=== PATIENT | female | born 1945 | race Caucasian/White ===

== ENCOUNTER 2016-05-27 13:26 | Emergency (ER) | payer OTHER, MEDICARE ==
[~2016-05-27] VITALS: Ht 157.5 cm; Wt 77.1 kg
--- NOTE | 2016-05-27 16:01 | ED MVC/FALL/TRAUMA COMPLAINT ---
History of Present Illness General Chief Complaint: Fall Stated Complaint: S/P FALL 5 STAIRS HIT HEAD,RIGHT ARM LEFT SHOULDER Source: patient Exam Limitations: no limitations Allergies Coded Allergies: MDX - SULFA (sulfonamide) (SULFA (SULFONAMIDE)) (UNKNOWN 05/18/11) Reconcile Medications Hydrocodone/Acetaminophen (Vicodin 5-300 MG Tablet) 5 MG-300 MG TABLET 1 TAB PO Q6HR PRN PAIN Hydrocodone/Acetaminophen ([place] 5-325 Tablet) 5 MG-325 MG TABLET 1-2 TAB PO Q4-6 PRN PRN pain Triage Note: FELL DOWN 5 STAIRS THIS AM. C/O PAIN ON LEFT SIDE OF HEAD, NECK AND SHOULDER WITH ABRASIONS. NO LOC, DENIES CHEST PAIN, DIZZINESS, WEAKNESS PRIOR TO FALL. PT IS ON ASA 81 MG PO. Triage Nurses Notes Reviewed? yes Onset: Just prior to arrival Duration: hour(s): (5) Timing: no prior history Severity: moderate Severity Numbers: 6 Injuries/Fall Location: head, upper extremity, lower extremity Method of Injury: fall Loss of Consciousness: no loss of consciousness Modifying Factors: Worsens With: movement, palpation. HPI: Patient is a 71-year-old female presenting to the emergency department with chief complaint of mechanical fall several hours prior to arrival. She reports that she was walking down the back steps with something in her hand and it got caught on the railing. She went down face first hit the left side of her head on the ground. No loss of consciousness. Just so hit her left shoulder, hit both knees and her right hand. She was able to get up with assistance. She's been ambulatory since. Denies any dizziness, palpitations shortness of breath chest pain or presyncopal symptoms prior to the fall. Denies any symptoms after the fall. She does report throbbing pain over the left side of her head where she hit her head. She was concerned that she noticed that she started getting a black eye. No nosebleeds. Denies taking anything for pain prior to arrival. Pain is worse with any type of movement. She is also reporting neck pain. (CHRISTIAN ANSARI) Vital Signs & Intake/Output Vital Signs & Intake/Output Vital Signs Date Time Temp Pulse Resp B/P Pulse O2 O2 Flow FiO2 Ox Delivery Rate 05/27 1734 97.6 79 18 168/100 96 Room Air 05/27 1405 98.2 75 18 160/100 99 Room Air Past History Travel History Traveled to [place] past 21 day No Medical History Any Pertinent Medical History? see below for history Cardiovascular: hypertension, hyperlipidemia Endocrine: diabetes Surgical History Surgical History: non-contributory Psychosocial History What is your primary language Uzbek Tobacco Use: Never used ETOH Use: denies use Family History Hx Contributory? No (CHRISTIAN ANSARI) Review of Systems Review of Systems Constitutional: Reports: no symptoms. Comments Review of systems: See HPI, All other systems negative. Constitutional, no chills fever or weight loss HEENT: No visual changes no sore throat no congestion Cardiovascular: No chest pain ,palpitation , orthopnea or ankle swelling Skin, no jaundice no rashes Respiratory: No dyspnea cough sputum or hemoptysis GI: No nausea no vomiting : No dysuria No hematuria Muscle skeletal: no back pain Neurologic: No numbness no confusion Psych: No stress anxiety or depression,. Heme/endocrine: No bruising no bleeding no polyuria or polydipsia Immunology: No splenectomy or history of AIDS (CHRISTIAN ANSARI) Physical Exam Physical Exam General Appearance: well developed/nourished, no apparent distress, alert, awake , comfortable Comments: Well-developed well-nourished person in no acute distress HEENT: extraocular motion intact, no nystagmus. Pupils equally round and reactive to light and accommodation. Nose is atraumatic. External auditory canal and Tympanic membranes clear. Pharynx normal. No swelling or edema. Large hematoma approximately 3-4 cm noted over the left lateral orbit. Tender to palpation over the left lateral orbit. No pain with extraocular eye movements. Neck: Supple, no lymphadenopathy, normal range of motion , tender to palpation over C7, tender to palpation of the cervical paraspinal muscles as well. Back: Nontender, no CVA tenderness. Full range of motion Cardiovascular: Regular rate and rhythms no murmurs rubs or gallops, normal JVP Respiratory: Chest nontender. No respiratory distress.breath sounds clear to auscultation bilaterally Extremity: No edema, no calf tenderness to palpation, radial pulses are 2+ bilaterally. Pedal pulses are 2+ bilaterally. Limited range of motion of right thumb secondary to pain. No snuffbox tenderness bilaterally. Capillary refill is intact in upper extremity as bilaterally. Tenderness to palpation over right patella, full range of motion of knees bilaterally. Tender to palpation over the left shoulder, full range of motion. Full range of motion of right shoulder. Neuro: Alert oriented x3, motor sensory normal, cranial nerves II through XII grossly intact. Cerebellar testing is unremarkable. Skin: Large 3-4 cm hematoma noted over the last 6 lateral orbit, superficial abrasion approximately 3 cm in size noted over the left shoulder, small 2 cm contusion noted over the right patella. Ecchymosis approximately 6 cm noted over the dorsum of the right hand and the right thumb. Psych: Mood and affect is normal, memory and judgment is normal. Core Measures ACS in differential dx? No Severe Sepsis Present: No Septic Shock Present: No (ISIDORO WATSON,CHRISTIAN) Progress Differential Diagnosis: intracranial hemorrhage, maxillofacial fracture, cervical fracture, left shoulder dislocation or fracture, shoulder sprain, right wrist fracture, left or right knee patellar fracture, contusion Diagnostic Imaging: Viewed by Me: Radiology Read, CT Scan. Discussed w/RAD: Radiology Read, CT Scan. Radiology Impression: PATIENT: CLOTILDE MACK PRESENT AGE: 71 PATIENT ACCOUNT NO: [id number] : 44 LOCATION: [facility] ORDERING PHYSICIAN: CHRISTIAN WATSON SERVICE DATE: 05/27/16 EXAM TYPE: CAT - CT CERV SPINE WO IV CONTRAST; CT HEAD WO IV CONTRAST; CT MAXILLOFACIAL W/O CON EXAMINATION: NONCONTRAST HEAD CT NONCONTRAST MAXILLOFACIAL CT NONCONTRAST CERVICAL SPINE CT INDICATION INFORMATION: Pain after fall, struck head COMPARISON: None TECHNIQUE: Separate noncontrast CT examinations of the head, maxillofacial bones, and cervical spine were performed. Coronal and sagittal images were created for each examination at the technologist workstation. DLP: 1496.62 mGy-cm FINDINGS: Head: There is no evidence of acute intracranial hemorrhage or territorial infarction. No abnormal mass-effect or midline shift is seen. Akers to white matter differentiation is well preserved. No extra-axial fluid collections are identified. The ventricles are normal in size. There is mild periventricular white matter hypoattenuation consistent with chronic small vessel ischemic disease. Mild volume loss is noted. A hypoattenuating focus in the left basal ganglia is suggestive of a chronic lacunar infarct. There is left supraorbital and frontal scalp soft tissue swelling and hematoma. No acute fracture is seen. There is partial opacification of the bilateral mastoid tip air cells. Maxillofacial: No acute maxillofacial fractures are seen. There is mild lateral left facial soft tissue swelling. Left supraorbital scalp soft tissue swelling and hematoma are again demonstrated. There is minimal opacification of the inferior bilateral maxillary sinuses. The frontal, ethmoid, and sphenoid sinuses are well aerated. The uncinate process is normal bilaterally. The infundibula and middle meati are patent. The mandibular condyles are well-seated in the condylar fossa. The orbits demonstrate a normal appearance bilaterally. The globes are intact, and there are no suspicious findings to suggest retrobulbar hemorrhage. Cervical spine: There is anatomic alignment of the vertebral bodies and posterior elements. There is degenerative change at the atlantodens articulation. Vertebral body heights are maintained. There is partial fusion of C2 and C3. There is disc space narrowing in the lower cervical spine with endplate osteophytes, most prominently at C5-C6 and C6-C7. No evidence of acute fracture. Tortuous left vertebral artery is suspected at the level of C6, resulting in mild chronic appearing bony contour deformity. No prevertebral soft tissue swelling. Visualized portions of the lung apices demonstrate a mild mosaic attenuation pattern suggesting heterogeneous air trapping. The thyroid gland is unremarkable. IMPRESSION: 1. Left supraorbital scalp soft tissue swelling and hematoma. No acute intracranial findings. 2. No acute maxillofacial fracture identified. 3. Multilevel degenerative changes of the cervical spine, with no acute findings seen., xray shoulder: no acute abnormality x-ray right knee: No acute abnormality X-ray left knee: Questionable patellar fracture nondisplaced X-ray right hand: No acute abnormality Comments: Patient given Vicodin on arrival for pain. She'll go for CT scan of the head, maxillofacial and neck. She'll go for x-rays of the left shoulder, bilateral knees, right hand. Patient informed of all x-ray results. X-ray does read that patient has a left patellar fracture, on reevaluation patient has no tenderness to palpation on the left patella and has full range of motion with no obvious edema or ecchymosis. This is likely an over read. Patient will be treated symptomatically for symptoms. She will follow up with PCP. (CHRISTIAN ANSARI) Plan of Care: Orders Procedure Date/time Status Durable Medical Equipment 05/27 1753 Active Departure Departure Time of Disposition: 1751 Disposition: HOME OR SELF CARE Condition: Stable Clinical Impression Primary Impression: Patellar fracture Qualifiers: Encounter type: initial encounter Fracture type: closed Fracture morphology: unspecified fracture morphology Fracture alignment: nondisplaced Laterality: left Qualified Code: S82.002A - Unspecified fracture of left patella , initial encounter for closed fracture Referrals: UNKNOWN (PCP/Family) Additional Instructions: Follow-up with orthopedics call to make appointment. Take pain medication as prescribed. Wear knee immobilizer until follow-up with orthopedics. Rest ice and elevate affected areas. Departure Forms: Customer Survey General Discharge Information Prescriptions: Current Visit Scripts Hydrocodone/Acetaminophen (Vicodin 5-300 MG Tablet) 1 TAB PO Q6HR PRN PAIN #10 TAB Hydrocodone/Acetaminophen ([place] 5-325 Tablet) 1-2 TAB PO Q4-6 PRN PRN pain #10 TAB (CHRISTIAN ANSARI) PA/DETECTIVE SERGEANT Co-Sign Statement Statement: ED Attending supervision documentation- [x] I saw and evaluated the patient. I have also reviewed all the pertinent lab results and diagnostic results. I agree with the findings and the plan of care as documented in the PA's/DETECTIVE SERGEANT's documentation. [] I have reviewed the ED Record and agree with the PA's/DETECTIVE SERGEANT's documentation. [] Additions or exceptions (if any) to the PAs/DETECTIVE SERGEANT's note and plan are summarized below: [] (ABHISHEK PANDYA,JUSTINE Sargent)
--- NOTE | 2016-05-27 17:12 | CT SCAN REPORT ---
EXAMINATION: NONCONTRAST HEAD CT NONCONTRAST MAXILLOFACIAL CT NONCONTRAST CERVICAL SPINE CT INDICATION INFORMATION: Pain after fall, struck head COMPARISON: None TECHNIQUE: Separate noncontrast CT examinations of the head, maxillofacial bones, and cervical spine were performed. Coronal and sagittal images were created for each examination at the technologist workstation. DLP: 1496.62 mGy-cm FINDINGS: Head: There is no evidence of acute intracranial hemorrhage or territorial infarction. No abnormal mass-effect or midline shift is seen. Akers to white matter differentiation is well preserved. No extra-axial fluid collections are identified. The ventricles are normal in size. There is mild periventricular white matter hypoattenuation consistent with chronic small vessel ischemic disease. Mild volume loss is noted. A hypoattenuating focus in the left basal ganglia is suggestive of a chronic lacunar infarct. There is left supraorbital and frontal scalp soft tissue swelling and hematoma. No acute fracture is seen. There is partial opacification of the bilateral mastoid tip air cells. Maxillofacial: No acute maxillofacial fractures are seen. There is mild lateral left facial soft tissue swelling. Left supraorbital scalp soft tissue swelling and hematoma are again demonstrated. There is minimal opacification of the inferior bilateral maxillary sinuses. The frontal, ethmoid, and sphenoid sinuses are well aerated. The uncinate process is normal bilaterally. The infundibula and middle meati are patent. The mandibular condyles are well-seated in the condylar fossa. The orbits demonstrate a normal appearance bilaterally. The globes are intact, and there are no suspicious findings to suggest retrobulbar hemorrhage. Cervical spine: There is anatomic alignment of the vertebral bodies and posterior elements. There is degenerative change at the atlantodens articulation. Vertebral body heights are maintained. There is partial fusion of C2 and C3. There is disc space narrowing in the lower cervical spine with endplate osteophytes, most prominently at C5-C6 and C6-C7. No evidence of acute fracture. Tortuous left vertebral artery is suspected at the level of C6, resulting in mild chronic appearing bony contour deformity. No prevertebral soft tissue swelling. Visualized portions of the lung apices demonstrate a mild mosaic attenuation pattern suggesting heterogeneous air trapping. The thyroid gland is unremarkable. IMPRESSION: 1. Left supraorbital scalp soft tissue swelling and hematoma. No acute intracranial findings. 2. No acute maxillofacial fracture identified. 3. Multilevel degenerative changes of the cervical spine, with no acute findings seen.
--- NOTE | 2016-05-27 17:39 | RADIOLOGY REPORT ---
EXAMINATION: XR HAND, RIGHT CLINICAL INFORMATION: Status post fall COMPARISON: None TECHNIQUE: AP, lateral, and oblique views of the right hand. FINDINGS: There is no evidence of fracture or dislocation. Alignment is anatomic. There is mild degenerative change involving the PIP and DIP joints as well as the first IP joint, MCP joint, and CMC joint. There is a punctate soft tissue calcification in the thenar region incidentally. There is minor chondrocalcinosis in the region of the triangle fibrocartilage versus a chronic appearing fracture of the ulnar styloid. IMPRESSION: No evidence of acute fracture or dislocation. Mild degenerative change.
--- NOTE | 2016-05-27 17:41 | RADIOLOGY REPORT ---
EXAMINATION: XR SHOULDER, LEFT CLINICAL INFORMATION: Left shoulder pain. Evaluate for fracture. COMPARISON: None TECHNIQUE: Internal rotation, external rotation and transscapular views of the left shoulder. of the left shoulder. FINDINGS: The bones and soft tissues are normal. No fracture. Glenohumeral and acromioclavicular alignment is anatomic with normal joint space. No abnormal soft tissue calcifications. IMPRESSION: No acute fracture or dislocation of the left shoulder. The left acromioclavicular joint is intact.
--- NOTE | 2016-05-27 17:46 | RADIOLOGY REPORT ---
EXAMINATION: XR KNEES, BILATERAL CLINICAL INFORMATION: Pain. Fall. COMPARISON: Report from MRI of the left knee dated 01/23/2015 TECHNIQUE: Frontal, lateral, and oblique views of both knees FINDINGS: Left knee: There is a curvilinear lucency along the lateral aspect of the patella seen only on a single view potentially reflecting a nondisplaced fracture. There is a small suprapatellar knee joint effusion. There is advanced degenerative change with joint space loss, subchondral sclerosis and spurring in all 3 compartments, most notable in the medial and patellofemoral compartments. There is some vascular calcification. Right knee: There is no evidence of fracture, dislocation, or joint effusion. There is moderate degenerative change within the medial compartment. There is some vascular calcification. IMPRESSION: Left: Curvilinear lucency along the lateral aspect of the patella seen only on a single view, potentially reflecting a nondisplaced fracture. Small suprapatellar knee joint effusion. Right: No evidence of fracture, dislocation, or joint effusion. Left greater than right degenerative change.
[2016-05-27] MEDS ORDERED: VICODIN 5-3001 EACH PO (17:53)
[2016-05-27] MEDS ORDERED: NORCO 5-325 TA1 EACH PO (18:05)
[2016-05-27 18:40] VITALS: BP 152/90
== END 2016-05-27 18:41 ==
LOC: ERH 13:26
DX: S82.002A Unspecified fracture of left patella, initial encounter for closed fracture (principal); S49.92XA Unspecified injury of left shoulder and upper arm, initial encounter; S89.91XA Unspecified injury of right lower leg, initial encounter; S69.91XA Unspecified injury of right wrist, hand and finger(s), initial encounter; E11.9 Type 2 diabetes mellitus without complications; I10 Essential (primary) hypertension; W10.9XXA Fall (on) (from) unspecified stairs and steps, initial encounter
CPT/HCPCS: 73030-LT; 73130-RT; 73562-LT; 73562-RT